=== PATIENT | female | born 1955 | race Caucasian/White ===

== ENCOUNTER → 2016-09-10 | Outpatient (CLI) | payer BC ==
[~2016-09-10] MED LIST: BUPR-79 PO; BUPR200T2 PO; IBUP-1428 PO; LAMO25TA PO; OXCA300T PO; TRIA3AER NAE; ZMG5 PO
--- NOTE | 2016-09-10 08:18 | DIAGNOSTIC IMAGING REPORT ---
(BARIUM SWALLOW) ESOPHAGUS CLINICAL HISTORY: J40,K21.9,[id number], reflux. COMPARISON STUDY: None FLUOROSCOPY TIME: 1.3 minutes. 20 fluoroscopic spot images were acquired.. FINDINGS: The swallowing mechanics appeared unremarkable. There is no aspiration. No esophageal masses or ulcerations were visualized. There is gastroesophageal reflux. IMPRESSION: 1. No masses or ulcerations identified 2. Gastroesophageal reflux Electronically signed by: Noe Shirley M.D. 09/10/2016 8:17 AM Dictated Date/Time: 09/10/2016 8:05 AM
== END | disposition home or self-care (01) ==
LOC: C.RAD 07:27
PROVIDERS: ATTEND Registered Nurse
DX: R13.10 Dysphagia, unspecified (principal); K21.9 Gastro-esophageal reflux disease without esophagitis

== ENCOUNTER 2022-05-20 10:16 | Observation (INO) ==
--- NOTE | 2022-05-20 10:53 | XRay Report ---
TWO VIEW CHEST CLINICAL HISTORY: Atypical chest pain. FINDINGS: PA and lateral chest radiographs are compared to study dated 09/08/2021. The cardiomediastin al silhouette is unremarkable noting atherosclerotic calcification of the thoracic aorta. The lungs and pleural spaces are clear. There is no pneumothorax. The skeletal structures are osteopenic. The b dipesh thorax appears intact. Degenerative change is noted in the thoracic spine. IMPRESSION: No active disease in the chest. ACT 112: Negative or not required by law. Electronically signed by: Javon Washington M.D. 05/20/2022 10:52 AM
[2022-05-20 11:37] LABS: Basophils # (auto) 0.05 K/uL (0-0.2); Eosinophils # (auto) 0.11 K/uL (0-0.50); Eosinophils % (auto) 2.1 %; Hematocrit (blood only) 39.6 % (34.1-44.9); Immature Granulocytes # (auto) 0.01 K/uL (0.00-0.02); Immature Granulocytes % (auto) 0.2 %; Lymphocytes # (auto) 1.01 K/uL (1.2-3.4); Lymphocytes % (auto) 19.4 %; Mean Corpuscular Hemoglobin 30.4 pg (25.0-34.0); Mean Corpuscular Hgb Conc 32.8 g/dL (32.0-36.0); Mean Corpuscular Volume 92.5 fL (80.0-100.0); Mean Platelet Volume 9.5 fL (9.4-12.3); Monocytes # (auto) 0.39 K/uL (0.24-0.82); Monocytes % (auto) 7.5 %; Neutrophils # (auto) 3.63 K/uL (1.4-6.5); Neutrophils % (auto) 69.8 %; Platelet Count 236 K/uL (130-400); RDW Coefficient of Variation 13.4 % (11.5-14.5); RDW Standard Deviation 45.3 fL (36.4-46.3); Red Blood Count 4.28 M/uL (3.93-5.22)
[2022-05-20 11:47] LABS: Partial Thromboplastin Ratio 0.8; Partial Thromboplastin Time 23.1 Seconds (21.0-31.0); Prothrombin Time 10.9 Seconds (9.0-12.0)
[2022-05-20 12:11] LABS: Troponin I High Sensitivity 6.2 pg/ml (0-14)
[2022-05-20 12:17] LABS: Albumin Globulin Ratio 1.7 (0.9-2); Albumin Level 4.4 gm/dl (3.4-5.0); Bilirubin,Total 0.4 mg/dl (0.2-1.0); Calcium 10.2 mg/dl (8.5-10.1); Creatinine Clr Calc Pharmacy 50.2 ml/min; Est GFR (African American) 66.6 ml/min; Est GFR (Non-African American) 57.4 ml/min; Globulin 2.6 gm/dl (2.5-4.0); Potassium 4.4 mmol/L (3.5-5.1)
--- NOTE | 2022-05-20 15:24 | Electrocardiogram Report ---
Test Reason : Blood Pressure : / mmHG Vent. Rate : 073 BPM Atrial Rate : 073 BPM P-R Int : 152 ms QRS Dur : 090 ms QT Int : 376 ms P-R-T Axes : 071 038 056 degrees QTc Int : 414 ms Normal sinus rhythm Left atrial enlargement Borderline ECG No previous ECGs available Confirmed by Jean Black ([id number]) on 05/20/2022 3:24:24 PM Referred By: Confirmed By:Jean Black
--- NOTE | 2022-05-20 15:37 | Emergency Department Note ---
History of Present Illness General Chief Complaint: Chest Pain Stated Complaint: CHEST PAIN, LIGHT HEADED, DIZZY, Time Seen by Provider: 05/20/22 11:22 History of Present Illness Provider Complaint: chest pain Onset (ago): day(s) 4 Duration: intermittent Onset: during exertion (Occurred after swimming and taking a walk for exercise) Pain Location: substernal Pain Radiation: LUE Severity: moderate Current Pain Intensity: 1 Quality: + heaviness Relieved By: + rest Exacerbated By: + exertion Context: no recent illness, no recent surgery, no recent immobilization, no recent travel, no trauma/injury, no new medications or no history of DVT/PE Associated symptoms: no nausea, no vomiting, no diaphoresis, no dyspnea, no syncope, no palpitations, no fever or no cough Related Data On Oral Contraceptives: No Home Medications Medication Instructions Recorded Confirmed Type magnesium oxide 400 mg PO QAM 04/02/18 05/20/22 History oxcarbazepine 300 mg tablet 300 mg PO QAM 04/02/18 05/20/22 History atorvastatin 10 mg tablet 20 mg PO HS 02/26/21 05/20/22 History bupropion HCl 150 mg 24 hr tablet, 150 mg PO BID 02/26/21 05/20/22 History extended release cetirizine 10 mg tablet (Zyrtec) 10 mg PO QAM 02/26/21 05/20/22 History famotidine 40 mg tablet 40 mg PO QAM 02/26/21 05/20/22 History lamotrigine 100 mg tablet 100 mg PO HS 02/26/21 05/20/22 History (Lamictal) zolmitriptan 2.5 mg tablet (Zomig) 2.5 mg PO UD PRN Migraine Headache 02/26/21 05/20/22 History amlodipine 5 mg tablet 5 mg PO DAILY #90 tabs 04/17/22 05/20/22 Rx losartan 25 mg tablet 25 mg PO DAILY #90 tabs 04/17/22 05/20/22 Rx Allergies Allergy/AdvReac Type Severity Reaction Status Date / Time Sulfa (Sulfonamide Allergy Intermediate Rash Verified 05/20/22 15:07 Antibiotics) Past Med/Surg History Medical History Acid reflux Arthritis Depression History of colitis Hyperlipidemia Migraine Reactive airway disease NO INHALER Restless leg syndrome Spinal stenosis Spondylosis Surgical History H/O tubal ligation History of colonoscopy History of esophagogastroduodenoscopy (EGD) History of tonsillectomy History of tooth extraction Family History Mother Family hx of colon cancer Grandfather (Maternal) Family hx of colon cancer Other Family history non-contributory No family history of adverse response to anesthesia Social History Smoking Status: Never smoker Tobacco Type: Cigarettes Second Hand Exposure: Yes ( A CHILD); Hx Alcohol Use: Yes Alcohol type: wine Hx Substance Use: No Preferred Language: Argentine Communication Ability: Effective 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 Beliefs That Will Affect Care: None Current Living Situation: Spouse Feels Safe at Home: Yes Assistive Devices: None Physical Exam Vital Signs Vital Signs - 24 hr 05/20/22 10:23 05/20/22 12:07 05/20/22 12:15 Temperature 36.7 C Temperature Source Oral Pulse Rate 79 64 65 Pulse Rate from SpO2 Sensor 65 66 Respiratory Rate 18 14 17 Blood Pressure 140/69 125/67 125/69 Blood Pressure Mean 92 86 87 Pulse Oximetry 97 99 99 Oxygen Delivery Method Room Air Room Air Room Air Sepsis Recent Fever Within 48 Hours No Sepsis New/Unexplained Change in Mental Status No Sepsis Action Taken by Nursing No Action Required 05/20/22 12:30 05/20/22 12:45 05/20/22 13:00 Temperature Temperature Source Pulse Rate 68 70 65 Pulse Rate from SpO2 Sensor 67 70 64 Respiratory Rate 13 16 15 Blood Pressure 133/71 130/68 132/68 Blood Pressure Mean 91 88 89 Pulse Oximetry 98 98 98 Oxygen Delivery Method Room Air Room Air Room Air Sepsis Recent Fever Within 48 Hours Sepsis New/Unexplained Change in Mental Status Sepsis Action Taken by Nursing 05/20/22 13:15 Temperature Temperature Source Pulse Rate 66 Pulse Rate from SpO2 Sensor 66 Respiratory Rate 16 Blood Pressure 148/75 H Blood Pressure Mean 99 Pulse Oximetry 98 Oxygen Delivery Method Room Air Sepsis Recent Fever Within 48 Hours Sepsis New/Unexplained Change in Mental Status Sepsis Action Taken by Nursing Physical Exam GENERAL: She is oriented to person, place, and time. She appears well-developed and well-nourished. She does not appear distressed. HENT: Exam performed. -Head: Normocephalic and atraumatic. -Right Ear: External ear normal. No mastoid tenderness. -Left Ear: External ear normal. No mastoid tenderness. -Mouth/Throat: The oropharynx is clear and moist. No trismus in the jaw. No dental abscesses or uvula swelling. No oropharyngeal exudate or tonsillar abscesses. EYES: Conjunctivae and EOM are normal. Pupils are equal, round, and reactive to light. Right eye exhibits no discharge. Left eye exhibits no discharge. No scleral icterus. NECK: Normal range of motion. Neck supple. No JVD present. No spinous process tenderness present. No carotid bruit present. No rigidity. No tracheal deviation and normal range of motion present. No Brudzinski's sign and no Kernig's sign noted. CV: Normal rate, regular rhythm, normal heart sounds and intact distal pulses. There is no peripheral edema. Palpable radial pulses bue. PULM/CHEST: Effort normal and breath sounds normal. No respiratory distress. No stridor. She has no wheezes. She has no rales. -Chest Wall: She exhibits no tenderness. ABD: The abdomen is soft. Bowel sounds are normal. She has no distension. No mass is present. There is no tenderness. There is no rebound, no guarding, no Brown's sign and no tenderness at McBurney's point. Rovsig negative MUSC/SKEL: Normal range of motion. There is no peripheral edema, tenderness or deformity. LYMPH: No cervical adenopathy. NEURO: She is alert and oriented to person, place, and time. She has normal strength. No cranial nerve deficit or sensory deficit. Coordination and gait normal. GCS eye subscore is 4. GCS verbal subscore is 5. GCS motor subscore is 6. Cerebellar tests wnl. SKIN: Skin is warm and dry. She is not diaphoretic. PSYCH: She has a normal mood and affect. Behavior is normal. Judgment and thought content normal. Course Course 1122: The patient was evaluated in room A3. A complete history and physical exam was performed Cardiac monitoring: An order was placed for continuous cardiac monitoring. The monitor shows a rate of 70 with sinus rhythm 1320: Vital signs stable. Labs and imaging was within normal limits. Patient's symptoms occurred after exercise swimming and taking a walk. Patient will be admitted to the [facility]ist team for chest pain rule out ACS. Medical Decision Making Laboratory Data Attestation: I reviewed the patient's lab results. Result diagrams: 05/20/22 11:28 05/20/22 11:28 Labs: Lab Results 05/20/22 05/20/22 05/20/22 Range/Units 11:28 11:28 11:28 WBC 5.20 (4.8-10.8) K/ul RBC 4.28 (3.93-5.22) M/uL Hgb 13.0 (12.0-16.0) g/dl Hct 39.6 (34.1-44.9) % MCV 92.5 (80.0-100.0) fL MCH 30.4 (25.0-34.0) pg MCHC 32.8 (32.0-36.0) g/dL RDW Std Deviation 45.3 (36.4-46.3) fL RDW Coeff of Nikolai 13.4 (11.5-14.5) % Plt Count 236 (130-400) K/uL MPV 9.5 (9.4-12.3) fL Immature Gran % (Auto) 0.2 % Neut % (Auto) 69.8 % Lymph % (Auto) 19.4 % Johnson % (Auto) 7.5 % Eos % (Auto) 2.1 % Baso % (Auto) 1.0 % Neut # (Auto) 3.63 (1.4-6.5) K/uL Lymph # (Auto) 1.01 L (1.2-3.4) K/uL Johnson # (Auto) 0.39 (0.24-0.82) K/uL Eos # (Auto) 0.11 (0-0.50) K/uL Baso # (Auto) 0.05 (0-0.2) K/uL Immature Gran # (Auto) 0.01 (0.00-0.02) K/uL PT 10.9 (9.0-12.0) Seconds INR 1.0 (0.9-1.1) APTT 23.1 (21.0-31.0) Seconds PTT Ratio 0.8 Sodium 140 (136-145) mmol/L Potassium 4.4 (3.5-5.1) mmol/L Chloride 107 (98-107) mmol/L Carbon Dioxide 30 (21-32) mmol/L Anion Gap 3 (3-11) BUN 24 H (6-23) mg/dl Creatinine 1.00 (0.6-1.2) mg/dl Est Cr Clr Drug Dosing 50.2 ml/min Est GFR ( Amer) 66.6 ml/min Est GFR (Non-Af Amer) 57.4 ml/min BUN/Creatinine Ratio 24.0 H (10-20) Glucose 116 H (70-99(Fasting)) mg/dl Calcium 10.2 H (8.5-10.1) mg/dl Total Bilirubin 0.4 (0.2-1.0) mg/dl AST 18 (13-39) U/L ALT 16 (7-52) U/L Alkaline Phosphatase 78 (34-104) U/L Troponin I High Sens 6.2 (0-14) pg/ml Total Protein 7.0 (6.0-8.3) gm/dl Albumin 4.4 (3.4-5.0) gm/dl Globulin 2.6 (2.5-4.0) gm/dl Albumin/Globulin Ratio 1.7 (0.9-2) SARS-CoV-2, RNA, NAAT (NEGATIVE) 05/20/22 Range/Units Unknown WBC (4.8-10.8) K/ul RBC (3.93-5.22) M/uL Hgb (12.0-16.0) g/dl Hct (34.1-44.9) % MCV (80.0-100.0) fL MCH (25.0-34.0) pg MCHC (32.0-36.0) g/dL RDW Std Deviation (36.4-46.3) fL RDW Coeff of Nikolai (11.5-14.5) % Plt Count (130-400) K/uL MPV (9.4-12.3) fL Immature Gran % (Auto) % Neut % (Auto) % Lymph % (Auto) % Johnson % (Auto) % Eos % (Auto) % Baso % (Auto) % Neut # (Auto) (1.4-6.5) K/uL Lymph # (Auto) (1.2-3.4) K/uL Johnson # (Auto) (0.24-0.82) K/uL Eos # (Auto) (0-0.50) K/uL Baso # (Auto) (0-0.2) K/uL Immature Gran # (Auto) (0.00-0.02) K/uL PT (9.0-12.0) Seconds INR (0.9-1.1) APTT (21.0-31.0) Seconds PTT Ratio Sodium (136-145) mmol/L Potassium (3.5-5.1) mmol/L Chloride (98-107) mmol/L Carbon Dioxide (21-32) mmol/L Anion Gap (3-11) BUN (6-23) mg/dl Creatinine (0.6-1.2) mg/dl Est Cr Clr Drug Dosing ml/min Est GFR ( Amer) ml/min Est GFR (Non-Af Amer) ml/min BUN/Creatinine Ratio (10-20) Glucose (70-99(Fasting)) mg/dl Calcium (8.5-10.1) mg/dl Total Bilirubin (0.2-1.0) mg/dl AST (13-39) U/L ALT (7-52) U/L Alkaline Phosphatase (34-104) U/L Troponin I High Sens (0-14) pg/ml Total Protein (6.0-8.3) gm/dl Albumin (3.4-5.0) gm/dl Globulin (2.5-4.0) gm/dl Albumin/Globulin Ratio (0.9-2) SARS-CoV-2, RNA, NAAT NEGATIVE (NEGATIVE) Imaging Data Chest x-ray: Radiologist's impression: Chest X-Ray 05/20/22 10:26 TWO VIEW CHEST CLINICAL HISTORY: Atypical chest pain. FINDINGS: PA and lateral chest radiographs are compared to study dated . The cardiomediastinal silhouette is unremarkable noting atherosclerotic calcification of the thoracic aorta. The lungs and pleural spaces are clear. There is no pneumothorax. The skeletal structures are osteopenic. The bony thorax appears intact. Degenerative change is noted in the thoracic spine. IMPRESSION: No active disease in the chest. ACT 112: Negative or not required by law. Electronically signed by: Javon Washington M.D. 05/20/2022 10:52 AM ECG Data Indication: chest pain Rate (beats per minute): 73 Rhythm: normal sinus Findings: no ST depression, no ST elevation or no prolonged QT MDM Narrative Vital signs stable. Labs and imaging was within normal limits. Patient's symptoms occurred after exercise swimming and taking a walk. Patient will be admitted to the [facility] hospitalist team for chest pain rule out ACS. Impression & Plan Chest pain Discharge Plan Visit Data Chief Complaint: Chest Pain Stated Complaint: CHEST PAIN, LIGHT HEADED, DIZZY, ED Provider: Marcos Harman Discharge Problem: Chest pain Patient Disposition: Being Evaluated by Hospitalist Forms Stand Alone Forms: [facility] Prescriptions Prescriptions: No Action oxcarbazepine 300 mg tablet 300 mg PO QAM magnesium oxide 400 mg magnesium Tablet 400 mg PO QAM cetirizine [Zyrtec] 10 mg Tablet 10 mg PO QAM atorvastatin 10 mg Tablet 20 mg PO HS famotidine 40 mg Tablet 40 mg PO QAM lamotrigine [Lamictal] 100 mg Tablet 100 mg PO HS bupropion HCl 150 mg Tablet Extended Release 24 Hr 150 mg PO BID zolmitriptan [Zomig] 2.5 mg Tablet 2.5 mg PO UD PRN (Reason: Migraine Headache) amlodipine 5 mg tablet 5 mg PO DAILY Qty: 90 3RF losartan 25 mg tablet 25 mg PO DAILY Qty: 90 3RF Referrals Referrals: Cheli Gill DO [Primary Care Provider] -
--- NOTE | 2022-05-20 16:22 | History & Physical Report ---
Date of Service May 20, 2022 Assessment & Plan (1) Stable angina: (2) Chest pain: Plan: Stress test performed 04/09 which need to be discontinued due to TORRES. Patient underwent a PCI on 04/17 for which 99% calcification was noted right coronary artery. No stent was placed at that time; rather medical management. Echo completed on 03/21 at [facility]. EF 67%, mild mitral calcification, trace mitral regurgitation. Patient had PFTs 2017 FEV1 120. EKG with NSR CXR negative Troponin 13 ; repeat 9 ECHO ordered and pending cardiology consult placed NPO after MN pending cards review Check TSH and Mg+ Ortho BPs No contributing family history Pro-Abner pending (3) HTN (hypertension): Plan: Takes amlodipine and losartan; continue Normotensive in ED (4) Hyperlipidemia: Plan: Takes atorvastatin; continue Lipid panel today TG 78, LDL 102, HDL 73. (5) Depression: Plan: Takes Wellbutrin; continue (6) Migraine: Plan: Takes Zomig at home; nonformulary will transition to Imipex PRN while here (7) Acid reflux: Plan: Persistent reflux Takes famotidine; continue Plan Disposition: PCP: Dr. Calderon CODE STATUS: Full code VTE prophylaxis: Patient ambulatory; await cards A total of 88 minutes was spent with greater than 50% of that time personally reviewing all current laboratory work and diagnostic imaging studies obtained in the ED. Additionally, I was able to review the patients past medication reconciliation and history with direct visualization in the patients chart. Included in the time above, a portion of that time was spent assessing the patient while discussing and collaborating with specialists, if necessary, and making medical decisions regarding orders to be placed. All of the aforementioned completed while collaborating with Dr. Boyd for a full treatment plan. Please see his addendum for further details. History of Present Illness Chief Complaint: chest pain/SOB with exertion Primary Care Provider: Cheli Gill DO Shanna is a 67-year-old female that presented to the [facility] today with chest pain. Patient reports that she has noticed shortness of breath for the past 4 days; all associated with exercise. She started going to the [facility] for swimming on and Friday and for 15 minutes had to stop due to chest pain. Chest pain resolved after exercise stopped. She went on a walk on Friday and continued to have exertional chest pain. 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 Patient reports that she does not have any chest pain when walking around her house or going upstairs. Patient follows with Miroslava Abdi and Dr. Devine and Dr. Pascual. Stress test performed 04/09 which need to be discontinued due to TORRES. Patient underwent a PCI on 04/17 for which 99% calcification was noted right coronary artery. No stent was placed at that time; rather medical management.. Echo completed on 03/21 at [facility]. EF 67%, mild mitral calcification, trace mitral regurgitation. Patient had PFTs 2017 FEV1 120. 04/09 stress test performed stress EKG noted abnormal upsloping ST depression in inferior leads. The stress test was terminated due to dyspnea angina was noted with stress Baseline blood pressure 120-130/50-70. Patient attended cardiology follow-up 05/01. Past medical history includes CKD stage III, RLS, hyperlipidemia, GERD, depression, HTN. Patient is a former smoker 1 PPD stopped in 1972. During my examination patient was sitting in the bedside chair in no apparent distress and able to have full conversation. Patient is awake alert oriented x4 and not experiencing any current chest pain, shortness of breath, heart palpitations, dizziness, syncope or near syncope, orthopnea, swelling in lower extremities. Patient denies fever, chills, cough, hematochezia, melena or hemoptysis. Will obtain echocardiogram for repeat imaging, consult cardiology, daily EKGs, orthostatic BPs, n.p.o. after midnight tonight pending cards review and possible cath. Patient receptive to admission and further evaluation and management. Please see A/P for further details. Allergies Allergy/AdvReac Type Severity Reaction Status Date / Time Sulfa (Sulfonamide Allergy Intermediate Rash Verified 05/20/22 15:07 Antibiotics) Home Medications Medication Instructions Recorded Confirmed Type magnesium oxide 400 mg PO QAM 04/02/18 05/20/22 History oxcarbazepine 300 mg tablet 300 mg PO QAM 04/02/18 05/20/22 History atorvastatin 10 mg tablet 20 mg PO HS 02/26/21 05/20/22 History bupropion HCl 150 mg 24 hr tablet, 150 mg PO BID 02/26/21 05/20/22 History extended release cetirizine 10 mg tablet (Zyrtec) 10 mg PO QAM 02/26/21 05/20/22 History famotidine 40 mg tablet 40 mg PO QAM 02/26/21 05/20/22 History lamotrigine 100 mg tablet 100 mg PO HS 02/26/21 05/20/22 History (Lamictal) zolmitriptan 2.5 mg tablet (Zomig) 2.5 mg PO UD PRN Migraine Headache 02/26/21 05/20/22 History amlodipine 5 mg tablet 5 mg PO DAILY #90 tabs 04/17/22 05/20/22 Rx losartan 25 mg tablet 25 mg PO DAILY #90 tabs 04/17/22 05/20/22 Rx Past Med/Surg History Medical History (Updated 05/20/22 @ 20:12 by RAHEEL Fairchild) Acid reflux Arthritis Depression History of colitis HTN (hypertension) Hyperlipidemia Migraine Reactive airway disease NO INHALER Restless leg syndrome Spinal stenosis Spondylosis Stable angina Surgical History H/O tubal ligation History of colonoscopy History of esophagogastroduodenoscopy (EGD) History of tonsillectomy History of tooth extraction Family History Mother Family hx of colon cancer Grandfather (Maternal) Family hx of colon cancer Other Family history non-contributory No family history of adverse response to anesthesia Social History Smoking Status: Never smoker Tobacco Type: Cigarettes Second Hand Exposure: Yes ( A CHILD); Hx Alcohol Use: Yes Alcohol type: wine Hx Substance Use: No Preferred Language: Jordanian Communication Ability: Effective 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 Beliefs That Will Affect Care: None Current Living Situation: Spouse Feels Safe at Home: Yes Assistive Devices: None Review of Systems Review of Systems: Neuro: (-) Falls, trauma, slurred speech HEENT: (-) WOOTEN, dizziness, dysphagia, visual or auditory changes CV: (-) CP, palpitations, swelling (+) CP with exercise and TORRES Resp: (-) SOB GI: (-) appetite changes, N/V/D, bowel changes : (-) urinary changes Skin: (-) rashes Psych: (-) anxiety, depression Physical Exam Physical Exam: Neuro: AAOx4, PERRLA, no aphagia, memory changes, CNII-XII grossly intact HEENT: head normocephalic, moist mucus membranes CV: S1/S2, (-) M/G/R, (-) edema, cap refill < 3 seconds Resp: Lungs CTA in all trejo. On RA GI: Abdomen S/NT/ND, Ax4 bowel sounds, (-) CVA tenderness Musculoskeletal: 5/5 B/L UE strength, 5/5 B/L LE strength. No gait disturbance Skin: (-) rashes , (-) erythema. Psych: euthymic mood Results & Data Results & Data ([facility]) Vital Signs (Past 12 Hours) Vital Signs Temp Pulse Resp BP Pulse Ox O2 Del Method 05/20/22 13:15 66 16 148/75 H 98 Room Air 05/20/22 13:00 65 15 132/68 98 Room Air 05/20/22 12:45 70 16 130/68 98 Room Air 05/20/22 12:30 68 13 133/71 98 Room Air 05/20/22 12:15 65 17 125/69 99 Room Air 05/20/22 12:07 64 14 125/67 99 Room Air 05/20/22 10:23 36.7 C 79 18 140/69 97 Room Air Laboratory Results Short CBC 05/20/22 Range/Units 11:28 WBC 5.20 (4.8-10.8) K/ul Hgb 13.0 (12.0-16.0) g/dl Hct 39.6 (34.1-44.9) % Plt Count 236 (130-400) K/uL BMP 05/20/22 11:28 Sodium 140 Potassium 4.4 Chloride 107 Carbon Dioxide 30 BUN 24 H Creatinine 1.00 Glucose 116 H Calcium 10.2 H Liver Function 05/20/22 Range/Units 11:28 Total Bilirubin 0.4 (0.2-1.0) mg/dl AST 18 (13-39) U/L ALT 16 (7-52) U/L Alkaline Phosphatase 78 (34-104) U/L Albumin 4.4 (3.4-5.0) gm/dl Diagnostic Findings Chest X-Ray 05/20/22 10:26 TWO VIEW CHEST CLINICAL HISTORY: Atypical chest pain. FINDINGS: PA and lateral chest radiographs are compared to study dated 09/08/2021. The cardiomediastinal silhouette is unremarkable noting atheroscle rotic calcification of the thoracic aorta. The lungs and pleural spaces are clear. There is no pneumothorax. The skeletal structures are osteopenic. The bony thorax appears intact. Degenerative change is noted in the thoracic spine. IMPRESSION: No active disease in the chest. ACT 112: Negative or not required by law. Electronically signed by: Javon Washington M.D. 05/20/2022 10:52 AM Code Status & VTE Plan Code Status Full code in the event of cardiac or respiratory arrest VTE Prophylaxis Plan VTE Prophylaxis will be ordered: Yes Supervising Physician Co-Signing Physician Notes 67-year-old lady who recently had at cardiac cath and was being treated medically presented to the ED 05/20 with complaint of chest pain with exertion since last 3 to 4 days. EKG with NSR, troponin negative, CXR with no acute findings, COVID-negative. Labs were reviewed, fairly WNL. Trend troponin, echo, cardiology consult, n.p.o. midnight. Stable angina. Patient denies smoking or use of recreational drugs, uses alcohol occasionally. Patient father with cholesterol problem, not aware of heart attack. Upon examination: GENERAL: Alert and oriented x3. NAD, on RA. HEENT: No pallor, no icterus. Pupils equal, round and reactive to light. Oral mucosa moist. NECK: No JVD, no neck masses. HEART: S1 and S2 heard. Regular rate and rhythm. No murmur, no gallop. RESPIRATORY SYSTEM: Normal AP diameter. No accessory muscle use. No wheezing, no crackles. ABDOMEN: Soft, bowel sounds present, nontender, no distention. CENTRAL NERVOUS SYSTEM: No facial droop. Speech is clear. Obeys simple commands. Moves extremities. EXTREMITIES: No edema, no erythema seen. I have seen and examined the patient and have discussed the case with the provider above. I agree with the assessment and plan as stated. (1) Chest pain Chest pain type: unspecified Qualified Code(s): R07.9 - Chest pain, unspecified
[2022-05-20] MEDS ORDERED: ONDANSETRON INJ 2 MG/ML 2 ML VIAL IV PRN (16:31)
[2022-05-20] MEDS ORDERED: ACETAMINOPHEN 325 MG TAB PO PRN (16:31)
[2022-05-20] MEDS ORDERED: POLYETHYLENE (MIRALAX) 17 GM PACK PO PRN (16:31)
[2022-05-20] MEDS ORDERED: ALUMINUM/MAGNESIUM SUSP 30 ML UDC PO PRN (16:31)
[2022-05-20] MEDS ORDERED: MAGNESIUM HYDROXIDE SUSP 30 ML UDC PO PRN (16:31)
[2022-05-20 18:31] LABS: Troponin I High Sensitivity 3.6 pg/ml (0-14)
[2022-05-20 18:42] LABS: Chol HDL Ratio 2.6 (0-5)
[2022-05-20] MEDS ORDERED: SUMAtriptan succinate 25 MG TAB PO PRN (19:26)
[2022-05-20] MEDS ORDERED: FAMOTIDINE 20 MG TAB ONE (20:10)
[2022-05-20] MEDS: buPROPion SR 150 MG TABCR PO SCH (20:12)
[2022-05-20] MEDS ORDERED: Nursing to Pharmacy Communication SCH (20:15)
[2022-05-20] MEDS ORDERED: lamoTRIgine 100 MG TAB PO SCH (21:00)
[2022-05-20] MEDS ORDERED: ATORVASTATIN 20 MG TAB PO SCH (21:00)
[2022-05-20] MEDS ORDERED: FAMOTIDINE 40 MG TABLET PO SCH (21:00)
[2022-05-21 06:28] LABS: Hematocrit (blood only) 39.6 % (34.1-44.9); Mean Corpuscular Hemoglobin 30.3 pg (25.0-34.0); Mean Corpuscular Hgb Conc 32.8 g/dL (32.0-36.0); Mean Corpuscular Volume 92.3 fL (80.0-100.0); Mean Platelet Volume 9.5 fL (9.4-12.3); Platelet Count 231 K/uL (130-400); RDW Coefficient of Variation 13.4 % (11.5-14.5); Red Blood Count 4.29 M/uL (3.93-5.22); White Blood Count 5.43 K/ul (4.8-10.8)
[2022-05-21 06:56] LABS: BUN Creatinine Ratio 23.7 (10-20); Calcium 9.7 mg/dl (8.5-10.1); Est GFR (African American) 69.1 ml/min; Est GFR (Non-African American) 59.6 ml/min; Magnesium 2.2 mg/dl (1.7-2.4)
--- NOTE | 2022-05-21 07:59 | Electrocardiogram Report ---
Test Reason : Blood Pressure : / mmHG Vent. Rate : 065 BPM Atrial Rate : 065 BPM P-R Int : 162 ms QRS Dur : 076 ms QT Int : 414 ms P-R-T Axes : 070 040 060 degrees QTc Int : 430 ms Poor data quality, interpretation may be adversely affected Normal sinus rhythm Left atrial enlargement Possible Old Septal infarct Abnormal ECG When compared with ECG of 20-MAY-2022 10:28, Borderline Criteria for Septal infarct is now Present Confirmed by Jean Black ([id number]) on 05/21/2022 7:58:47 AM Referred By: REFERRED SELF Confirmed By:Jean Black
[2022-05-21] MEDS ORDERED: amLODIPine BESYLATE 5 MG TAB PO SCH (09:00)
[2022-05-21] MEDS ORDERED: MAGNESIUM OXIDE 400 MG TAB PO SCH (09:00)
[2022-05-21] MEDS ORDERED: LOSARTAN POTASSIUM 25 MG TAB PO SCH (09:00)
[2022-05-21] MEDS ORDERED: FAMOTIDINE 40 MG TABLET PO SCH (09:00)
[2022-05-21] MEDS ORDERED: CETIRIZINE HCL 10 MG TABLET PO SCH (09:00)
[2022-05-21] MEDS ORDERED: OXcarbazepine 150 MG TABLET PO SCH (09:00)
[2022-05-21] MEDS: buPROPion SR 150 MG TABCR PO SCH (09:34)
--- NOTE | 2022-05-21 14:14 | Cardiology Consultation ---
Date of Consultation May 21, 2022 Assessment & Plan (1) Stable angina: (2) HTN (hypertension): (3) Hyperlipidemia: Plan 67-year-old female with known coronary disease with prior card catheterization demonstrating 99% subtotal stenosis of the ostial right coronary artery. This is a threadlike vessel but distal vessel does fill via collaterals. Anatomy not amenable to coronary invention. Stress echocardiogram today with typical angina but no profound ischemia by EKG or echocardiographic findings at high workload. Discussed in detail with patient typical angina exacerbated with moderately high level workload. We will attempt to increase antianginal regimen add metoprolol succinate 12.5 mg daily Follow-up to be arranged with cardiology 1 week Patient to be discharged on adjustments as above continue prior medications as well. History of Present Illness Reason for Consultation: Exertional chest pain exertional chest pain Requesting Physician: Dr. Apodaca Attending Physician: Maryann Apodaca MD History of Present Illness Patient is a 67-year-old female with ongoing issues which include 1. Chronic coronary artery disease single-vessel occlusive with cardiac catheterization 04/17/2022 demonstrating thin threadlike subtotal occlusion of t he ostial right coronary artery with distal filling via collateral flow not amenable to intervention or bypass 2. Chronic angina pectoris 3. Hypertension 4. Hyperlipidemia Patient presents now noting exacerbation of typical anginal symptoms described as chest pressure to left shoulder while swimming. Symptoms began occurring his exercise activities were increased. All episodes resolved with rest. Due to concerns regarding symptoms underlying anatomy as well as planned trip to the [facility] later this month patient sought emergency room care. Patient has had no further chest pain or discomfort overnight. No evidence of myocardial infarction by echocardiogram EKG or enzyme. She notes blood pressures are generally up-and-down but trending towards higher despite medications. No fevers chills or unexplained infections. No bleeding difficulties Allergies Allergy/AdvReac Type Severity Reaction Status Date / Time Sulfa (Sulfonamide Allergy Intermediate Rash Verified 05/20/22 15:07 Antibiotics) Home Medications Medication Instructions Recorded Confirmed Type magnesium oxide 400 mg PO QAM 04/02/18 05/20/22 History oxcarbazepine 300 mg tablet 300 mg PO QAM 04/02/18 05/20/22 History atorvastatin 10 mg tablet 20 mg PO HS 02/26/21 05/20/22 History bupropion HCl 150 mg 24 hr tablet, 150 mg PO BID 02/26/21 05/20/22 History extended release cetirizine 10 mg tablet (Zyrtec) 10 mg PO QAM 02/26/21 05/20/22 History famotidine 40 mg tablet 40 mg PO QAM 02/26/21 05/20/22 History lamotrigine 100 mg tablet 100 mg PO HS 02/26/21 05/20/22 History (Lamictal) zolmitriptan 2.5 mg tablet (Zomig) 2.5 mg PO UD PRN Migraine Headache 02/26/21 05/20/22 History amlodipine 5 mg tablet 5 mg PO DAILY #90 tabs 04/17/22 05/20/22 Rx losartan 25 mg tablet 25 mg PO DAILY #90 tabs 04/17/22 05/20/22 Rx Patient History Medical History (Updated 05/20/22 @ 20:12 by RAHEEL Fairchild) Acid reflux Arthritis Depression History of colitis HTN (hypertension) Hyperlipidemia Migraine Reactive airway disease NO INHALER Restless leg syndrome Spinal stenosis Spondylosis Stable angina Surgical History H/O tubal ligation History of colonoscopy History of esophagogastroduodenoscopy (EGD) History of tonsillectomy History of tooth extraction Family History Mother Family hx of colon cancer Grandfather (Maternal) Family hx of colon cancer Other Family history non-contributory No family history of adverse response to anesthesia Social History Smoking Status: Former smoker Tobacco Type: Cigarettes Second Hand Exposure: Yes ( A CHILD); Hx Alcohol Use: Yes Alcohol type: wine Hx Substance Use: No Preferred Language: Sinhala Communication Ability: Effective Operating Room Registered Nurse Required: No Beliefs That Will Affect Care: None Current Living Situation: Spouse Feels Safe at Home: Yes Assistive Devices: Glasses Review of Systems Review of Systems: All systems reviewed & are unremarkable except as noted in HPI & below Physical Exam Constitutional: WD/WN, vitals as above Eyes: PERRL, conjunctivae normal, anicteric sclerae ENMT: external ear and nose normal, oropharynx normal Neck: trachea midline, no thyromegaly Respiratory: normal respiratory effort, lungs clear to auscultation Cardiovascular: Rate/Rhythm: regular rate and regular rhythm Heart Sounds: normal S1 and normal S2; no gallop and no murmur Palpation: normal PMI Vessels: normal carotid upstroke and radial pulses present; no JVD and no carotid bruit Extremities: no edema Gastrointestinal (Abdomen): normal bowel sounds, soft, nontender, no hepatosplenomegaly Musculoskeletal: no cyanosis or clubbing, extremities motor strength 5/5 Skin: no rashes, warm and dry Neurologic: PERRL, EOMI, accommodation nl, no face palsy, no dysarthria Psychiatric: A+Ox3, euthymic affect Results & Data ([facility]) Vital Signs (Past 12 Hours) Vital Signs Temp Pulse Pulse Resp BP BP Pulse Ox 05/21/22 13:05 36.9 C 75 19 143/72 H 97 05/21/22 06:00 63 05/21/22 07:06 36.3 C L 85 16 111/72 100 05/21/22 03:00 36.8 C 66 16 105/55 L 99 O2 Del Method 05/21/22 13:05 Room Air 05/21/22 06:00 05/21/22 07:06 Room Air 05/21/22 03:00 Room Air Laboratory Results Laboratory Results - last 24 hr 05/20/22 05/20/22 05/20/22 17:41 23:10 23:10 WBC RBC Hgb Hct MCV MCH MCHC RDW Std Deviation RDW Coeff of Nikolai Plt Count MPV Sodium Potassium Chloride Carbon Dioxide Anion Gap BUN Creatinine Est Cr Clr Drug Dosing Est GFR ( Amer) Est GFR (Non-Af Amer) BUN/Creatinine Ratio Glucose Calcium Magnesium 2.3 Troponin I High Sens 3.6 3.8 Triglycerides 78 Cholesterol 191 LDL Cholesterol, Calc 102 VLDL Cholesterol, Calc 16 HDL Cholesterol 73 Cholesterol/HDL Ratio 2.6 TSH 05/20/22 05/21/22 05/21/22 23:10 06:01 06:01 WBC 5.43 RBC 4.29 Hgb 13.0 Hct 39.6 MCV 92.3 MCH 30.3 MCHC 32.8 RDW Std Deviation 46.0 RDW Coeff of Nikolai 13.4 Plt Count 231 MPV 9.5 Sodium 141 Potassium 4.0 Chloride 107 Carbon Dioxide 28 Anion Gap 6 BUN 23 Creatinine 0.97 Est Cr Clr Drug Dosing 51.0 Est GFR ( Amer) 69.1 Est GFR (Non-Af Amer) 59.6 BUN/Creatinine Ratio 23.7 H Glucose 84 Calcium 9.7 Magnesium 2.2 Troponin I High Sens Triglycerides Cholesterol LDL Cholesterol, Calc VLDL Cholesterol, Calc HDL Cholesterol Cholesterol/HDL Ratio TSH 2.381 Diagnostic Findings Stress echocardiogram performed 05/21/2021 Excellent workload achieving 9 minutes on a standard Jovany protocol reaching 84% age-predicted maximal heart rate. There is mild upward sloping ST depression in inferolateral leads which returned to baseline recovery phase Patient did experience typical angina but was able to exercise for additional 3 minutes on top Echocardiogram demonstrates preserved LV systolic function at rest and stress without overt ischemia
[2022-05-21] MEDS ORDERED: METOPROLOL SUCC 25MG EXT REL TAB PO SCH (14:15)
--- NOTE | 2022-05-21 17:06 | Discharge Summary ---
Date of Service May 21, 2022 Admission HPI Per Admitting Provider Shanna is a 67-year-old female that presented to the [facility] today with chest pain. Patient reports that she has noticed shortness of breath for the past 4 days; all associated with exercise. She started going to the [facility] for swimming on and Friday and for 15 minutes had to stop due to chest pain. Chest pain resolved after exercise stopped. She went on a walk on Friday and continued to have exertional chest pain. 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 Patient reports that she does not have any chest pain when walking around her house or going upstairs. Patient follows with Miroslava Abdi and Dr. Devine and Dr. Pascual. Stress test performed 04/09 which need to be discontinued due to TORRES. Patient underwent a PCI on 04/17 for which 99% calcification was noted right coronary artery. No stent was placed at that time; rather medical management.. Echo completed on 03/21 at [facility]. EF 67%, mild mitral calcification, trace mitral regurgitation. Patient had PFTs 2017 FEV1 120. 04/09 stress test performed stress EKG noted abnormal upsloping ST depression in inferior leads. The stress test was terminated due to dyspnea angina was noted with stress Baseline blood pressure 120-130/50-70. Patient attended cardiology follow-up 05/01. Past medical history includes CKD stage III, RLS, hyperlipidemia, GERD, depression, HTN. Patient is a former smoker 1 PPD stopped in 1972. During my examination patient was sitting in the bedside chair in no apparent distress and able to have full conversation. Patient is awake alert oriented x4 and not experiencing any current chest pain, shortness of breath, heart palpitations, dizziness, syncope or near syncope, orthopnea, swelling in lower extremities. Patient denies fever, chills, cough, hematochezia, melena or hemoptysis. Will obtain echocardiogram for repeat imaging, consult cardiology, daily EKGs, orthostatic BPs, n.p.o. after midnight tonight pending cards review and possible cath. Patient receptive to admission and further evaluation and management. Please see A/P for further details. Principal Diagnosis Stable Angina Discharge Exam Appears well, pleasant and comfortable Respiratory Breathing comfortably on room air, no wheezing/rhonchi/rales Cardiovascular Regular rate and rhythm, no murmurs/rubs/gallops Gastrointestinal (Abdomen) Soft, non tender, non distended Musculoskeletal No edema Neurologic Awake, alert, spontaneously moving extremities Discharge Data Allergies Allergy/AdvReac Type Severity Reaction Status Date / Time Sulfa (Sulfonamide Allergy Intermediate Rash Verified 05/20/22 15:07 Antibiotics) Consultations 05/20/22 13:21 ED Decision to Admit Stat 05/20/22 16:31 Consult Cardiology Routine Hospital Course (1) Stable angina: (2) Chest pain: (3) HTN (hypertension): (4) Hyperlipidemia: (5) Depression: (6) Migraine: (7) Acid reflux: Lianet Otero is a 67-year-old female with a history of CAD who presented to [facility] 05/20/2022 with chest pain and shortness of breath associated with exercise over the past 4 days. She was admitted here for further evaluation and underwent a stress test which was negative for inducible ischemia. During stress test, moderate-high workload was achieved and she did experience chest tightness which resolved after rest. She was seen by Cardiology for her stable angina and started on metoprolol 12.5mg daily. She was instructed to follow up in the office within 1 week. Total Time Total Time Spent Total Time Spent (In Minutes): 35 Discharge Plan Discharge Items Patient Disposition: Home - Self-Care Reason For Visit: CHEST PAIN Discharge Diagnosis: Stable Angina Activity: Resume your previous activity Non-emergency contact: Primary Care Provider and Yard Supervisor Cotton Gin Follow-up/Referrals: Cheli Gill DO [Primary Care Provider] - (Date & Time 05/28/2022 3:00 PM Provider Cheli Gill DO Department Family Practice [facility] ) Miroslava Headley PA-C [Physician Technology Trainer] - (The cardiology office will call you with an appointment. ) Diet: Heart Healthy Addtl Attending Provider Instructions: You were started on Metoprolol 12.5mg daily. Please follow up with Cardiology in 1 week Pending Studies at Discharge: No Stand-Alone Forms: My [employer], Smoking Cessation Medications and DC Order Prescriptions: New metoprolol succinate 25 mg Tablet Extended Release 24 Hr 12.5 mg PO QAM 30 Days Qty: 15 0RF nitroglycerin 0.3 mg tablet, sublingual 0.3 mg sublingual Q5M PRN (Reason: chest pain) Qty: 14 0RF Rx Instructions: Max 3 tablets in 15 minutes Continued oxcarbazepine 300 mg tablet 300 mg PO QAM magnesium oxide 400 mg magnesium Tablet 400 mg PO QAM cetirizine [Zyrtec] 10 mg Tablet 10 mg PO QAM atorvastatin 10 mg Tablet 20 mg PO HS famotidine 40 mg Tablet 40 mg PO QAM lamotrigine [Lamictal] 100 mg Tablet 100 mg PO HS bupropion HCl 150 mg Tablet Extended Release 24 Hr 150 mg PO BID zolmitriptan [Zomig] 2.5 mg Tablet 2.5 mg PO UD PRN (Reason: Migraine Headache) amlodipine 5 mg tablet 5 mg PO DAILY Qty: 90 3RF losartan 25 mg tablet 25 mg PO DAILY Qty: 90 3RF Discharge Orders: Discharge Order (Routine); Ordered 05/21/22 Ordered By: Maryann Apodaca Admission Data Admit Date/Time: 05/20/22 16:31 Attending Provider: Maryann Apodaca Admit Provider: Vinicio Boyd Primary Care Provider: Cheli Gill Other Providers: Vinicio Boyd ; Shabbir Godwin
== END 2022-05-21 18:28 | disposition home or self-care (01) ==
LOC: ED 10:16 → EDINP 16:31 → INTOOBSV 16:31 → SUATTDRO 16:31 → 4W 19:18